=== PATIENT | female | born 1935 | race Caucasian/White ===

== ENCOUNTER 2017-04-17 07:58 | Inpatient (IN) | payer OTHER ==
[~2017-04-17] VITALS: Ht 149.9 cm; Wt 46.4 kg
--- NOTE | ~2017-04-17 | EKG ---
PATIENT: WIL DURAN UNIT #: [id number] Ventricular Rate: 112 BPM Atrial Rate: 112 BPM P-R Interval: 212 ms QRS Duration: 90 ms Q-T Interval: 308 ms QTC Calculation(Bezet): 420 ms P [place]: 53 degrees Calculated R [place]: -45 degrees Calculated T [place]: 71 degrees Diagnosis Line: Sinus tachycardia with 1st degree A-V block Diagnosis Line: Left anterior fascicular block Diagnosis Line: Voltage criteria for left ventricular hypertrophy Diagnosis Line: Abnormal ECG Diagnosis Line: When compared with ECG of 25-MAR-2010 10:24, Diagnosis Line: No significant change was found Diagnosis Line: Confirmed by FELICIA GOLDBERG MD ([id number]) on 04/17/2017 Diagnosis Line: 7:56:29 PM INTERPRETING MD: ASHLYN JOHNSON
--- NOTE | ~2017-04-17 | EKG ---
PATIENT: WIL DURAN UNIT #: [id number] Ventricular Rate: 83 BPM Atrial Rate: 83 BPM P-R Interval: 238 ms QRS Duration: 92 ms Q-T Interval: 390 ms QTC Calculation(Bezet): 458 ms P [place]: 70 degrees Calculated R [place]: -61 degrees Calculated T [place]: 40 degrees Diagnosis Line: Sinus rhythm with 1st degree A-V block Diagnosis Line: Possible Left atrial enlargement Diagnosis Line: Incomplete right bundle branch block Diagnosis Line: Left anterior fascicular block Diagnosis Line: Abnormal ECG Diagnosis Line: When compared with ECG of 17-APR-2017 08:09, Diagnosis Line: T wave amplitude has decreased in Inferior leads Diagnosis Line: Confirmed by FELICIA GOLDBERG MD ([id number]) on 04/19/2017 Diagnosis Line: 7:12:17 PM INTERPRETING MD: ASHLYN JOHNSON
--- NOTE | ~2017-04-17 | CR72 ---
[facility] A Service of [facility] RADIOLOGY TEXT RESULTS PATIENT: WIL DURAN LOCATION: [facility] 310-01 : 34 UNIT #: [id number] AGE: [address]: Kiran Aviles MD SEX: F ORDER DR: [id number] [facility] [address]. [place], [place] [address] [id number] I MR#: [id number] Acc #: [id number] NAME: WIL DURAN. : 1935 SEX: F STUDY DATE/TIME: 04/17/2017 9:04 UNIT: CEDOF ROOM: 72488 STUDY DESCRIPTION: CR Chest Single View Portable Attending Physician: Kiran Aviles M.D. Ordering Physician: Mack Woods M.D. Primary Care Physician: Mavis Medeiros M.D. MEDICAL IMAGING REPORT This report is preliminary unless electronic signature is present EXAM Frontal chest 04/17/2017. INDICATIONS 81-year-old female with chest pain, drainage from the right foot, redness and swelling. Symptoms 2 days HISTORY Heart valve replacement and shortness of air. Former smoker. TECHNIQUE Frontal chest was performed. COMPARISON 08/15/2013. FINDINGS Postop changes median sternotomy and heart valve replacement. The heart is enlarged and the aorta is tortuous. Appearance unchanged. Coarsened interstitial markings are present bilaterally. No new effusion or dense consolidation. No pneumothorax. The lungs are emphysematous. IMPRESSION 1. Tortuous aorta and cardiomegaly. Chronic lung changes. No definite superimposed active disease. Dictated by... Jose Cervantes M.D. THIS IS AN ELECTRONICALLY VERIFIED REPORT Jose Cervantes M.D. at 04/17/2017 2:38 PM ANDERS/reena [facility] A Service of [facility] RADIOLOGY TEXT RESULTS PATIENT: WIL DURAN LOCATION: [facility] 310-01 : 34 UNIT #: [id number] AGE: [address]: Kiran Aviles MD SEX: F ORDER DR: TD: 04/17/2017 13:54 JOB #: [id number] MEDICAL IMAGING REPORT Page 1 of 1 COPY
--- NOTE | ~2017-04-17 | HP ---
Unit #: [id number] #: [id number] Patient: WIL DURAN [id number] [facility]. [address] [place], [place] [address] [id number] I MR#: [id number] NAME: WIL DURAN ROOM: 310 Age: 81 Sex: F Admission Date: 04/17/2017 : 1935 Attending Physician: Kiran Aviles M.D. Primary Care Physician: Mavis Medeiros M.D. HISTORY AND PHYSICAL ADMISSION DIAGNOSES 1. Lower extremity cellulitis. 2. Atypical chest pain. 3. History of coronary artery disease. 4. History of congestive heart failure. 5. History of chronic kidney disease. 6. Questionable peripheral vascular disease. 7. Chronic bilateral lower extremity wounds. 8. Dyslipidemia. HISTORY OF PRESENT ILLNESS Miss Duran is an 81-year-old female, patient of Dr. Mavis Medeiros, who presents to emergency room with complaints of lower extremity swelling, redness and tenderness. Patient was diagnosed with the cellulitis, started on IV clindamycin and vancomycin empirically and admitted. Patient also had some occasional chest pains, does have a history of congestive heart failure and coronary artery disease along with the history of dyslipidemia and questionable peripheral vascular disease. Patient is a very poor historian, therefore I am not able to obtain any other history. She denies any shortness of air, dyspnea, headache, dizziness, fever, chills, nausea, vomiting, diarrhea or abdominal pain. REVIEW OF SYSTEMS A 12-point review of systems on this patient basically is negative except as above. PAST MEDICAL HISTORY Past medical history is significant for history of coronary artery disease, hypertension, dyslipidemia, chronic kidney disease and congestive heart failure. PAST SURGICAL HISTORY Past surgical history is significant for cardiac cath, also cardiac surgery, multiple lower extremity wound debridements. SOCIAL HISTORY She quit smoking at the age of 39, denies any alcohol or illicit drugs. FAMILY HISTORY Unremarkable. PHYSICAL EXAMINATION GENERAL: Patient is an 81-year-old female, otherwise not in acute Unit #: [id number] #: [id number] Patient: WIL DURAN distress. VITAL SIGNS: BP 150/94. Heart rate 60. Respirations 16. Temperature 99.4. HEENT: Head is atraumatic. Pupils equal, round and reactive to light. Oropharynx clear, with missing tooth. NECK: Neck is supple. No mass. No JVD. No bruits. CHEST: Diminished bilaterally. CARDIOVASCULAR: S1 and S2. No murmurs. ABDOMEN: Soft, nontender, nondistended. EXTREMITIES: Lower extremities significant for erythema, swelling and scaly fungal dermatitis. NEUROLOGIC: Neurologically alert and oriented, answering questions appropriately. No focal neurological deficit on the limited exam. DIAGNOSTIC STUDIES IMAGING: Chest x-ray unremarkable. Foot x-ray no significant findings. LABORATORY: Chemistry significant for blood glucose of 118 and GFR at 59.6, otherwise unremarkable. Coagulation panel unremarkable. Set of cardiac enzymes negative. Hematology: White count 12.1, otherwise unremarkable. Blood culture pending. ASSESSMENT AND PLAN 1. Bilateral lower extremity cellulitis: Continue IV clindamycin and vancomycin. ID to evaluate. Also will obtain ABIs. 2. Occasional chest pain with the history of coronary artery disease and congestive heart failure: Resume home meds. Consult Cardiology. First set of cardiac enzymes negative. 3. Dyslipidemia: Continue statin. 4. GI and DVT prophylaxis: Started on Lovenox. Will start on Pepcid. Dictated by Kiran Aviles M.D. OC/dutch TD: 04/17/2017 20:26 JOB #: [id number] HISTORY AND PHYSICAL Page 1 of 1 X Kiran Aviles MD HISTORY AND PHYSICAL
--- NOTE | ~2017-04-17 | US136 ---
[facility] A Service of [facility] RADIOLOGY TEXT RESULTS PATIENT: WIL DURAN LOCATION: [facility] : 34 UNIT #: [id number] AGE: [address]: Kiran Aviles MD SEX: F ORDER DR: [id number] [facility] [address] [facility]. [place], [place] [address] [id number] I MR#: [id number] Acc #: [id number] NAME: WIL DURAN : 1935 SEX: F STUDY DATE/TIME: 04/18/2017 10:25 UNIT: C3A [facility] ROOM: 310 STUDY DESCRIPTION: US U/L Ext Art Study Ltd Bilat Attending Physician: Kiran Aviles M.D. Ordering Physician: Kiran Aviles M.D. Primary Care Physician: Mavis Medeiros M.D. MEDICAL IMAGING REPORT This report is preliminary unless electronic signature is present DATE OF EXAM 04/18/2017 EXAM Bilateral lower extremity GIULIANA. HISTORY Bilateral leg pain, PAD. FINDINGS The right brachial pressure is 125, left is 117. Right dorsalis pedis pressure is 140 and posterior tibial is 158 for an GIULIANA of 1.27, and a first toe pressure of 121 mmHg. Left dorsalis pedis pressure is 139 and posterior tibial is 152, for an GIULIANA of 1.23 and a first toe pressure of 142 mmHg. PVR waveform at the ankle level appear to be normal and intact bilateral. First digital waveforms are intact and symmetric bilateral. Arterial waveforms of the dorsalis pedis and posterior tibial arteries demonstrated biphasic waveforms bilateral. IMPRESSION No arterial insufficiency in either the right or the left lower extremity with adequate perfusion of the first toes. Dictated by... Victor Hugo Cobian M.D. [facility] A Service [facility] RADIOLOGY TEXT RESULTS PATIENT: WIL DURAN LOCATION: [facility] 310 : 34 UNIT #: [id number] AGE: [address]: Kiran Aviles MD SEX: F ORDER DR: THIS IS AN ELECTRONICALLY VERIFIED REPORT Victor Hugo Cobian M.D. at 04/20/2017 7:33 AM DEA/alexandra TD: 04/18/2017 21:06 JOB #: [id number] MEDICAL IMAGING REPORT Page 1 of 1 COPY
--- NOTE | ~2017-04-17 | CO ---
Unit #: [id number] #: [id number] Patient: WIL SARMIENTO [id number] [address] [place], [place] [address] [id number] I MR#: [id number] NAME: WIL SARMIENTO ROOM: 310 Age: 81 Sex: F Admission Date: 04/17/2017 : 1935 Attending Physician: Kiran Aviles M.D. Primary Care Physician: Mavis Medeiros M.D. Requesting Physician: Kiran Aviles M.D. CONSULTATION REPORT REASON FOR CONSULTATION Lower extremity cellulitis. HISTORY OF PRESENT ILLNESS Ms. Sarmiento is a pleasant 81-year-old female who presented to the emergency room with complaints of lower extremity swellness and redness and tenderness. The patient stated that she has a history of plaque in her lower extremities and she is also on a diuretic for which she had stopped taking and, when she stopped her diuretics, she noticed her legs were becoming more increasingly swollen as well as red with also some open wounds. She has been started on clindamycin and vancomycin empirically and we are being consulted for antibiotic management. She stated that she does have a history of CHF and coronary artery disease along with dyslipidemia and peripheral vascular disease. She denies any fevers or chills, nausea or vomiting, shortness of breath. She did complain of some chest pain upon admission which has been better for which she is followed by Cardiology. PAST MEDICAL HISTORY Significant for coronary artery disease, hypertension, dyslipidemia, chronic kidney disease and congestive heart failure. PAST SURGICAL HISTORY Significant for cardiac cath as well as cardiac surgery and multiple lower extremity wound debridements. SOCIAL HISTORY The patient lives at home with family. She is a former smoker that quit smoking at the age of 39. She denies any alcohol or illicit drug use. FAMILY HISTORY Noncontributory. REVIEW OF SYSTEMS All negative except for those stated in HPI. CURRENT ALLERGIES The patient states she is allergic to penicillin with reaction patient stating with what sounds like respiratory distress. PHYSICAL EXAMINATION GENERAL: A pleasant 81-year-old woman sitting up in the chair with no current complaints. CURRENT VITAL SIGNS: Temperature 98.5. Heart rate 77. Respirations 18. Unit #: [id number] #: [id number] Patient: WIL SARMIENTO Blood pressure 113/60. HEENT: Head is normocephalic. Pupils equal, round and reactive to light. NECK: Supple. CHEST: Clear to auscultation. CARDIOVASCULAR: Regular rate. ABDOMEN: Soft, nontender, nondistended. EXTREMITIES: Upper extremities clean, dry and intact. Lower extremities with noticeable dependent edema and erythema. Right lower extremity with scabbed area. No drainage from wounds. NEUROLOGIC: She is awake, alert and oriented, answering questions appropriately and follows all with no deficits. DIAGNOSTIC STUDIES LABORATORY: Glucose 118, BUN 22, creatinine 0.7, sodium 138. Hematology: White count is 7.1, hemoglobin 12.3, platelets 158. Microbiology data: Pending blood cultures. IMAGING: Chest x-ray with no superimposed active disease. Foot x-ray with osteoporosis with diffuse nonspecific soft tissue swelling, may reflect cellulitis. No acute fracture. No focal erosive changes. ASSESSMENT AND PLAN Bilateral lower extremity erythema and edema possibly related to the cellulitis versus peripheral vascular, peripheral arterial disease. ABIs have been ordered. We will follow up on results and Vascular has been consulted. At this time, due to open wounds, we will continue vancomycin and clindamycin for now. We have MD to assist. We will follow up on the blood cultures. The patient is nontoxic appearing and stable. We will discuss plan with Dr. Medina who will evaluate the patient later today and further recommendations to come from him. Thank you for consultation. Dictated by... Gely Still APRN for Erica Omer/kwadwo TD: 04/18/2017 11:15 JOB #: [id number] CONSULTATION REPORT Page 1 of 1 X X CONSULTATION REPORT
--- NOTE | ~2017-04-17 | CO ---
Unit #: [id number] #: [id number] Patient: WIL DURAN [id number] [facility] [address] [facility]. [place], [place] [address] [id number] I MR#: [id number] NAME: WIL DURAN ROOM: 310 Age: 81 Sex: F Admission Date: 04/17/2017 : 1935 Attending Physician: Kiran Aviles M.D. Primary Care Physician: Mavis Medeiros M.D. Consultation Date: 04/17/2017 CONSULTATION REPORT REASON FOR CONSULTATION Chest pain. HISTORY OF PRESENT ILLNESS This is an 81-year-old white female, who is known to Dr. Koch, who has a history of coronary artery disease, where she underwent coronary artery bypass graft x1 and tissue mitral valve replacement for severe mitral regurgitation. She is known to have paroxysmal atrial fibrillation and is not on anticoagulation. She is a poor historian, but states she has come to the emergency room because of chest pain and right lower extremity pain. She had pain and swelling to her right lower extremity that she has been self-treating with "sab." She also reports an episode of substernal chest pain that was nonradiating to her neck, arm, or jaw associated with shortness of breath that awakened her from sleep 2 nights ago. She has had no other episodes prior to 2 days ago. She came to the emergency room for evaluation, where initial troponin has been negative. Her EKG shows no acute ischemic changes. She is admitted with right lower extremity cellulitis and has been on antibiotic therapy. She denies dyspnea, diaphoresis, dizziness, syncope, or near syncope. PAST MEDICAL HISTORY 1. Transesophageal echocardiogram on 03/30/2012 shows an ejection fraction of 65% to 70%. Left atrium severely enlarged. Mild tricuspid regurgitation and mild aortic regurgitation. 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 2. Cardiac catheterization on 03/29/[address] Koch at [facility] that reveals distal left main 20%. The circumflex artery 20% to 30%. LAD proximal 50%. Diagonal branches have several areas of no more than 20% lesions. LAD after the diagonal branch has 60% to 70% stenosis. Right coronary artery 30%, mid vessel with 30% to 40% distally. Left ventricular end-diastolic pressure 20 to 24 mmHg. Pulmonary artery pressure is 64 with mean of 41 mmHg. 3. Status post coronary artery bypass graft x1 with BUENROSTRO to the LAD and tissue mitral valve replacement on 04/30/2010 at [facility] per Dr. Berry. 4. Paroxysmal atrial fibrillation, not on anticoagulation. 5. Hypertension. 6. Hyperlipidemia. 7. Severe pulmonary hypertension. 8. Former smoker. PAST SURGICAL HISTORY 1. Coronary artery bypass graft with tissue mitral valve replacement. Unit #: [id number] #: [id number] Patient: WIL DURAN 2. Hysterectomy. SOCIAL HISTORY The patient lives at home alone. She ambulates with a cane. She has a neighbor name "Makenna," who assist her with her care. She quit smoking more than 40 years ago. She denies illicit drug or alcohol use. FAMILY HISTORY Mother from myocardial infarction. ALLERGIES Penicillin, lidocaine, and Benadryl. HOME MEDICATIONS Aspirin 81 mg daily, carvedilol 6.25 mg t.i.d., furosemide 40 mg daily, lisinopril 5 mg q.h.s., potassium chloride 10 mEq daily, Zocor 20 mg daily. REVIEW OF SYSTEMS CONSTITUTIONAL: Negative for fever or chills. Has no weight gain or weight loss. No fatigue or weakness. HEENT: No headache, hearing or vision change, or difficulty with swallowing. No dizziness. CARDIOVASCULAR: Has chest pain as described in the HPI. Denies palpitations. No paroxysmal nocturnal dyspnea or orthopnea. RESPIRATORY: Negative for dyspnea, cough, or hemoptysis. GASTROINTESTINAL: No abdominal pain, nausea, or vomiting. EXTREMITIES: Reports right lower extremity edema with redness and open wounds. PHYSICAL EXAMINATION VITAL SIGNS: Blood pressure is 115/65, heart rate 104, temperature 97.6. GENERAL: This is a thin frail 81-year-old elderly white female, who is in no acute distress. NEUROLOGIC: She is awake, alert, and oriented. Noted for some forgetfulness of an anxiety. There are no focal weaknesses. NECK: Trachea is midline. No thyromegaly. No lymphadenopathy. No jugular venous distention. HEART: S1 and S2. Heart sounds are normal. No murmurs, rubs, or clicks. Regular rate and rhythm. LUNGS: Clear without rales, rhonchi, or wheezes. ABDOMEN: Soft and nontender with bowel sounds present. No masses appreciated. EXTREMITIES: Right lower extremity with redness, nonhealing wound. Both femoral and popliteal pulses are easily palpable. DIAGNOSTIC STUDIES LABORATORY RESULTS: Hemoglobin 13.2, hematocrit 39.7, platelet count 185, and white count 12.1. Sodium 138, potassium 4.3, BUN 22, creatinine 0.9, glucose 118, magnesium 2.1. Troponin less than 0.05. IMAGING STUDIES: Chest x-ray shows cardiomegaly and chronic lung changes. CARDIOVASCULAR STUDIES: EKG shows sinus tachycardia, rate of 112 beats per minute with left anterior fascicular block. IMPRESSION 1. Questionable right arterial insufficiency below the knee. 2. Rule out cellulitis of the right foot. Unit #: [id number] #: [id number] Patient: WIL DURAN 3. History of coronary artery bypass graft x1 with mitral valve replacement with tissue mitral valve replacement. 4. Chest pain, questionable etiology. 5. Hypertension. 6. Hyperlipidemia. 7. Paroxysmal atrial fibrillation, in normal sinus rhythm. PLAN 1. Cardiology was consulted for evaluation of chest pain. Chest pain may be ischemic in origin. We will continue to trend troponin to rule out myocardial infarction. She has no EKG changes that are acute. 2. The patient is started on antibiotics. ID has been consulted. 3. Manage pain with IV morphine. 4. Place on IV fluids. 5. We will follow the patient with you. Thank you for allowing us to assist with this patient's care. Dictated by... Nuvia BenitezPBartRBartN. for Erica Schmitt/jeramie TD: 04/18/2017 20:48 JOB #: [id number] CONSULTATION REPORT Page 1 of 1 X Rylan Coronado APRN X CONSULTATION REPORT
--- NOTE | ~2017-04-17 | CR127 ---
[facility] A Service of [facility] RADIOLOGY TEXT RESULTS PATIENT: WIL DURAN LOCATION: [facility] 310-01 : 34 UNIT #: [id number] AGE: [address]: Kiran Aviles MD SEX: F ORDER DR: [id number] [facility] [address] [facility] [address]. [place], [place] [address] [id number] I MR#: [id number] #: [id number] NAME: WIL DURAN. : 1935 SEX: F STUDY DATE/TIME: 04/17/2017 9:06 UNIT: CEDOF ROOM: 76360 STUDY DESCRIPTION: CR Foot Complete Min 3 View Rt Attending Physician: Kiran Aviles M.D. Ordering Physician: Mack Woods M.D. Primary Care Physician: Mavis Medeiros M.D. MEDICAL IMAGING REPORT This report is preliminary unless electronic signature is present EXAM Right foot 04/17/2017. INDICATIONS 81-year-old female with drainage from the right foot with redness and swelling 2 days. Redness from the toes up to the mid perdomo level. Pain and swelling. Symptoms 2 days. . TECHNIQUE 3 views of the right foot. COMPARISON Comparison 11/27/2011. FINDINGS The bones are osteoporotic. No acute fracture. No focal erosive change. Mild degenerative changes in the hindfoot and midfoot. Diffuse nonspecific soft tissue swelling. IMPRESSION 1. Osteoporosis with diffuse nonspecific soft tissue swelling. This may reflect cellulitis. 2. No acute fracture. No focal erosive change. Dictated by... Jose Cervantes M.D. THIS IS AN ELECTRONICALLY VERIFIED REPORT Jose Cervantes M.D. at 04/17/2017 2:38 PM ANDERS/reena TD: 04/17/2017 14:00 JOB #: [id number] [facility] A Service of [facility] RADIOLOGY TEXT RESULTS PATIENT: WIL DURAN LOCATION: [facility] 310-01 : 34 UNIT #: [id number] AGE: [address]: Kiran Aviles MD SEX: F ORDER DR: MEDICAL IMAGING REPORT Page 1 of 1 COPY
--- NOTE | ~2017-04-17 | DS ---
Unit #: [id number] #: [id number] Patient: WIL DURAN [id number] [address] [address] [id number] I MR#: [id number] NAME: WIL DURAN ROOM: 310 Age: 81 Sex: F Admission Date: 04/17/2017 : 1935 Discharge Date: 04/20/2017 Attending Physician: Kiran Avlies M.D. Primary Care Physician: Mavis Medeiros M.D. DISCHARGE SUMMARY DISCHARGE DIAGNOSES 1. Lower extremity cellulitis. 2. Chest pain, status post cardiology evaluation. 3. History of coronary artery disease. 4. History of congestive heart failure. 5. Dyslipidemia. DISCHARGE MEDICATIONS 1. Doxycycline 100 mg p.o. b.i.d. for seven days. 2. Tylenol #3 one tablet p.o. q.4-6 h. p.r.n. for pain. 3. Carvedilol 6.25 mg b.i.d. 4. Furosemide 40 mg daily. 5. Zocor 20 mg daily. 6. Lisinopril 5 mg daily. 7. Aspirin 81 mg daily. 8. Klor-Con 10 mEq daily. DISPOSITION Going home; patient refuses the home health. CONSULS DONE THIS HOSPITAL STAY 1. Dr. Medina, infectious disease. 2. Dr. Koch, cardiology. LABS AND DIAGNOSTICS AND PROCEDURES DONE THIS HOSPITAL STAY 1. Two-D echo shows EF of 50% to 55%. 2. Blood culture negative. 3. Lower extremity ultrasound negative for DVT. 4. Ultrasound was GIULIANA which shows arterial insufficiency. 5. Foot x-ray showed osteoporosis, nonspecific soft tissue swelling. 6. Chest x-ray on admission also was done which was unremarkable all except for tortuous aorta and cardiomegaly. Chronic lung changes. No definite superimposed active disease. HISTORY OF PRESENT HOSPITAL STAY Please refer to H and P done by me for initial presentation on this female. ACTIVE PROBLEMS AND DIAGNOSES Lower extremity cellulitis: Patient initially was treated with the IV clinda and vanc, status post evaluation per ID, stable to be discharged on p.o. doxycycline per Infectious Disease. Chest pain with history of coronary artery disease and CHF, status post Unit #: [id number] #: [id number] Patient: WIL DURAN evaluation per Cardiology, continue medical management. Two-D echo as above. Outpatient followup with the Cardiology. Dyslipidemia, continue statin. DISCHARGE MEDICATIONS Discharge medications as above. DISPOSITION As above. Dictated by... Kiran Aviles M.D. OC/dutch TD: 04/20/2017 20:36 JOB #: [id number] DISCHARGE SUMMARY Page 1 of 1 X Kiran Aviles MD X DISCHARGE SUMMARY
[~2017-04-17 07:58] MED LIST: ACETAMINOPHEN PO; ASPIRIN81 M1 PO; CLARITIN10 MG PO; COREG3.125 MG PO; COREG6.25 MG PO; K-DUR20 ME1 PO; LASIX20 MG PO; LISINOPRIL5 MG PO; LORTAB 5/500 TA1 TA2 PO; LUMIGAN OU; OCEAN NASAL SPRAY; PRILOSEC PO; ZITHROMAX PO; ZOCOR20 MG PO
[2017-04-17 09:40] LABS: POC - CKMB 1.8 ng/mL (0.0-7.9); POC - TROPONIN <0.05 ng/mL (<=0.05)
[2017-04-17 09:50] LABS: BASOPHIL% 0.3 % (0-2.5); DIFF IND NO; EOSINOPHIL# 0.2 X10e3 (0-0.7); EOSINOPHIL% 1.3 % (0.0-7.0); HEMATOCRIT 39.7 % (35.0-45.0); HEMOGLOBIN 13.2 gm/dL (12.0-16.0); LYMPHOCYTE# 0.4 X10e3 (1.0-3.5); LYMPHOCYTE% 3.1 % (17.0-45.0); MEAN CELL VOLUME 87.6 FL (83-96); MEAN CORPUSCULAR HEMOGLOBIN 29.1 PG (28-34); MEAN CORPUSCULAR HGB CONC 33.2 g/dL (30-36); MEAN PLATELET VOLUME 7.7 FL (6.5-11.5); MONOCYTE# 0.7 X10e3 (0-1.0); MONOCYTE% 5.9 % (3.0-12.0); NEUTROPHIL# 10.8 X10e3 (1.5-7.1); NEUTROPHIL% 89.4 % (40-75); PLATELET COUNT 185 X10e3 (140-420); RED BLOOD COUNT 4.53 X10e (3.90-5.30); RED CELL DISTRIBUTION WIDTH 15.3 % (11.0-15.5); WHITE BLOOD COUNT 12.1 X10e3 (4.0-10.5)
[2017-04-17 10:01] LABS: INR 1.1; PARTIAL THROMBOPLASTIN TIME 28.1 SECONDS (23.5-31.3); PROTHROMBIN TIME (PATIENT) 11.4 SECONDS (10.0-11.7)
[2017-04-17 10:13] LABS: BILIRUBIN, DIRECT 0.1 mg/dL (0.0-0.2); BILIRUBIN,INDIRECT 0.7 mg/dL (0.0-0.9); BILIRUBIN,TOTAL 0.8 mg/dL (0.2-2.0); BUN/CREATININE RATIO 24.44; CALCIUM SERUM 9.1 mg/dL (8.4-10.2); CREATININE SERUM 0.9 mg/dL (0.6-1.4); GLOM FILT RATE Estimated 59.6 mL/min (>60); MAGNESIUM 2.1 mg/dL (1.6-3.0); PHOSPHOROUS 3.5 mg/dL (2.5-4.6); POTASSIUM 4.3 mmol/L (3.5-5.1); PROTEIN TOTAL SERUM 7.5 g/dL (6.0-8.3)
[2017-04-17 11:34] LABS: POC - CKMB 1.8 ng/mL (0.0-7.9); POC - TROPONIN <0.05 ng/mL (<=0.05)
[2017-04-17] MEDS ORDERED: LO-DOSE ASPIRIN81 M1 PO (14:15)
[2017-04-17] MEDS ORDERED: CARVEDILOL6.25 MG PO (14:16)
[2017-04-17] MEDS ORDERED: LISINOPRIL5 MG PO (14:17)
[2017-04-17] MEDS ORDERED: FUROSEMIDE40 MG PO (14:17)
[2017-04-17] MEDS ORDERED: POTASSIUM CHLO10 MEQ PO (14:18)
[2017-04-17] MEDS ORDERED: ZOCOR20 MG PO (14:18)
[2017-04-17 18:14] LABS: %MB 4.4 % (0.0-4.0); MB 4.9 ng/ml
[2017-04-18 00:02] LABS: %MB 4.2 % (0.0-4.0); MB 4.4 ng/ml
[2017-04-18 08:16] LABS: BASOPHIL# 0.1 X10e3 (0-0.3); BASOPHIL% 0.7 % (0-2.5); EOSINOPHIL# 0.3 X10e3 (0-0.7); EOSINOPHIL% 3.9 % (0.0-7.0); HEMATOCRIT 37.4 % (35.0-45.0); HEMOGLOBIN 12.3 gm/dL (12.0-16.0); LYMPHOCYTE# 0.8 X10e3 (1.0-3.5); LYMPHOCYTE% 11.8 % (17.0-45.0); MEAN CELL VOLUME 88.4 FL (83-96); MEAN CORPUSCULAR HEMOGLOBIN 29.2 PG (28-34); MEAN PLATELET VOLUME 7.6 FL (6.5-11.5); MONOCYTE# 0.6 X10e3 (0-1.0); MONOCYTE% 8.7 % (3.0-12.0); NEUTROPHIL# 5.3 X10e3 (1.5-7.1); NEUTROPHIL% 74.9 % (40-75); PLATELET COUNT 158 X10e3 (140-420); RED BLOOD COUNT 4.22 X10e (3.90-5.30); RED CELL DISTRIBUTION WIDTH 15.2 % (11.0-15.5); WHITE BLOOD COUNT 7.1 X10e3 (4.0-10.5)
[2017-04-18 08:22] LABS: DIFF IND NO
[2017-04-18 08:42] LABS: BUN/CREATININE RATIO 18.57; CALCIUM SERUM 8.2 mg/dL (8.4-10.2); CREATININE SERUM 0.7 mg/dL (0.6-1.4); GLOM FILT RATE Estimated 80.7 mL/min (>60); POTASSIUM 4.1 mmol/L (3.5-5.1)
[2017-04-18 08:57] LABS: CHOLESTEROL 120 mg/dL (0-200); HDL CHOLESTEROL 50 mg/dL (35-95); LDL CHOLESTEROL 62 mg/dL (-130); LDL/HDL RATIO 1 RATIO (0-4); TRIGLYCERIDES 40 mg/dL (10-160)
[2017-04-19 06:52] LABS: BASOPHIL# 0.1 X10e3 (0-0.3); BASOPHIL% 0.9 % (0-2.5); EOSINOPHIL# 0.3 X10e3 (0-0.7); EOSINOPHIL% 5.5 % (0.0-7.0); HEMATOCRIT 38.7 % (35.0-45.0); HEMOGLOBIN 12.6 gm/dL (12.0-16.0); LYMPHOCYTE# 0.9 X10e3 (1.0-3.5); LYMPHOCYTE% 14.6 % (17.0-45.0); MEAN CELL VOLUME 87.7 FL (83-96); MEAN CORPUSCULAR HEMOGLOBIN 28.7 PG (28-34); MEAN CORPUSCULAR HGB CONC 32.7 g/dL (30-36); MEAN PLATELET VOLUME 7.6 FL (6.5-11.5); MONOCYTE# 0.5 X10e3 (0-1.0); MONOCYTE% 8.4 % (3.0-12.0); NEUTROPHIL# 4.1 X10e3 (1.5-7.1); NEUTROPHIL% 70.6 % (40-75); PLATELET COUNT 171 X10e3 (140-420); RED BLOOD COUNT 4.41 X10e (3.90-5.30); RED CELL DISTRIBUTION WIDTH 15.5 % (11.0-15.5); WHITE BLOOD COUNT 5.9 X10e3 (4.0-10.5)
[2017-04-19 07:01] LABS: DIFF IND NO
[2017-04-19 07:22] LABS: BUN/CREATININE RATIO 21.25; CALCIUM SERUM 8.5 mg/dL (8.4-10.2); CREATININE SERUM 0.8 mg/dL (0.6-1.4); GLOM FILT RATE Estimated 68.7 mL/min (>60); POTASSIUM 4.3 mmol/L (3.5-5.1)
[2017-04-20] MEDS ORDERED: DOXYCYCLINE HY100 M3 PO (19:23)
[2017-04-20] MEDS ORDERED: TYLENOL #3 PO (19:26)
== END 2017-04-20 20:44 | disposition home or self-care (01) | DRG 603 ==
LOC: CED 07:58 → CEDOF 11:07 → CED 12:22 → CEDOF 14:37 → C3A PCU 14:37
PROVIDERS: Emergency Medicine; Hospitalist; Nurse Practitioner
DX: L03.116 Cellulitis of left lower limb (principal); I13.0 Hypertensive heart and chronic kidney disease with heart failure and stage 1 through stage 4 chronic kidney disease, or unspecified chronic kidney disease; I50.9 Heart failure, unspecified; I27.2 Other secondary pulmonary hypertension; L03.115 Cellulitis of right lower limb; E78.5 Hyperlipidemia, unspecified; R07.89 Other chest pain; I25.10 Atherosclerotic heart disease of native coronary artery without angina pectoris; N18.9 Chronic kidney disease, unspecified; I73.9 Peripheral vascular disease, unspecified; Z87.891 Personal history of nicotine dependence; I48.0 Paroxysmal atrial fibrillation; Z95.1 Presence of aortocoronary bypass graft
CPT/HCPCS: 36415; 71010; 73630; 80048; 80061; 80076; 80202; 82150; 82550; 82553; 83605; 83690; 83735; 84100; 84443; 84484; 85025; 85610; 85730; 87040; 93005; 93306; 93922; 96365; 97161; 97165; 99285; G8978-GP; G8979-GP; G8980-GP; G8987-GO; G8988-GO; G8989-GO; J1650; J3370; J3475; J3480